=== PATIENT | male | born 1970 | race Caucasian/White ===

== ENCOUNTER 2021-09-09 20:17 | Inpatient (IN) | payer OTHER ==
[~2021-09-09] VITALS: Ht 177.8 cm; Wt 125.2 kg
[2021-09-09 20:24] VITALS: BP 132/63
[2021-09-09 22:33] LABS: ABSOLUTE NEUTROPHILS 4.8 thou/uL (1.4-8.2); BASOPHILS 0.2 % (0.0-2.0); HEMOGLOBIN 11.9 gm/dL (14.0-18.0); LYMPHOCYTES 19.5 % (24.0-44.0); MCH 30.8 pg (26.0-34.0); MCV 90.8 fL (80.0-100.0); MONOCYTES 7.5 % (1.0-8.0); PLATELET COUNT 140 thou/uL (150-400); POLYS 72.8 % (36.0-66.0); RBC 3.85 mil/uL (4.50-6.00); RDW 13.3 % (10.5-14.5); WBC 6.6 thou/uL (4.0-11.0)
[2021-09-09 22:40] LABS: CALCIUM 7.8 mg/dL (8.5-10.1); POTASSIUM 4.6 mmol/L (3.5-5.1)
[2021-09-09 22:51] LABS: TOTAL BILIRUBIN 0.3 mg/dL (0.2-1.0); TOTAL PROTEIN 6.2 g/dL (6.4-8.2)
[2021-09-09 23:36] LABS: URINE BILIRUBIN NEGATIVE (Negative); URINE BLOOD TRACE (Negative); URINE CLARITY CLEAR; URINE COLOR YELLOW; URINE GLUCOSE-RANDOM* NEGATIVE (Negative); URINE KETONES NEGATIVE (Negative); URINE LEUKOCYTES-REFLEX NEGATIVE (Negative); URINE NITRITE-REFLEX NEGATIVE (Negative); URINE PROTEIN (DIPSTICK) NEGATIVE (Negative); URINE UROBILINOGEN 0.2 E.U./dl (0.2-1.0)
[2021-09-09] MEDS ORDERED: NOVOLOG FL100 UNIT/M SUBQ (23:38)
[2021-09-09] MEDS ORDERED: ATORVASTATIN CA10 MG PO (23:39)
[2021-09-09] MEDS ORDERED: CITALOPRAM HBR40 MG PO (23:39)
[2021-09-09] MEDS ORDERED: CLOZAPINE25 MG PO (23:40)
[2021-09-09] MEDS ORDERED: LAMOTRIGINE300 MG PO (23:40)
[2021-09-09] MEDS ORDERED: METFORMIN HCL1000 MG PO (23:41)
[2021-09-09] MEDS ORDERED: PINDOLOL5 MG PER TUBE (23:41)
[2021-09-09] MEDS ORDERED: LISINOPRIL10 MG PO (23:41)
[2021-09-09] MEDS ORDERED: ZIPRASIDONE HCL60 MG PO (23:42)
[2021-09-09] MEDS ORDERED: VASCEPA1 GM PO (23:44)
[2021-09-09] MEDS ORDERED: TRESIBA FL200 UNIT/1 SUBQ (23:44)
[2021-09-10 00:11] VITALS: BP 105/60
[2021-09-10 00:44] VITALS: BP 119/74
--- NOTE | 2021-09-10 02:05 | NUR ---
ADMIT FROM ED. PT LIVES AT HOME WITH HIS SISTER. PT REPORTED FEELING UNWELL FOR 2 WEEKS, SOA, WEAKNESS, COUGH, FEVER, SORE THROAT. PT REPORTED TO ED NOT FEELING WELL FOR 4 DAYS. MED HX ASTHMA, SOA, HTN, DM, SCHIZOPHRENIA, DEPRESSION, ANXIETY. PT ABLE TO CONFIRM HOME MEDS FROM ED LIST, BUT NOT DOSES. PTS SISTER DID COME TO ED WITH PT AND TESTED NEGATIVE. PT HAD J&J VACCINE LAST YEAR. PT HAD FLU VACCINE. PT SLOW TO RESPOND VERBALLY, DEVELOPMENTAL DELAY. LUNGS DIMINISHED, PRN 02 NC FOR LABORED RR. RESPIRATORY PROVIED TREATMENT AND PLACED ON CPAP. ABD DISTENDED, BS DECREASED. PALE DIAPHORETIC, PRN PROVIED FOR ELEVATED TEMP. BED ALARM ON. PT EDUCATED TO CALL FOR ASSIST. IVF INTACT.
[2021-09-10 04:28] LABS: CHOLESTEROL 74 mg/dL (<200); HDL CHOLESTEROL 22 mg/dL (>40); LDL CHOLESTEROL 13 mg/dL (<100); TC:HDL 3.4 Ratio (Not establshd); TRIGLYCERIDE 197 mg/dL (<150); VLDL 39 mg/dL (<40)
[2021-09-10 05:05] LABS: SERUM ASSESSMENT Clear
[2021-09-10 05:27] VITALS: BP 135/87
[2021-09-10 08:05] VITALS: BP 114/73
[2021-09-10] MEDS ORDERED: TRESIBA FL200 UNIT/1 SUBQ (12:59)
[2021-09-10 16:54] VITALS: BP 117/81
--- NOTE | 2021-09-10 19:19 | NUR ---
PATIENT IS ALERT AND ORIENTED X4. HE IS DELAYED IN RESPONDING TO THIS CREDIT DIRECTOR DUE TO CHRONIC ILLINESSES. PATIENT IN ON 2L OF OXYGEN VIA NASAL CANULA AT THIS TIME. PATIENT IS MED- [employer] TELE AND HAS BEEN RUNNING SINUS RHYTHM THIS SHIFT. PATIENT HAD A LARGE BM THIS SHIFT. PATIENT USES THE TOILET AND URINAL FOR TOILETING. PATIENTS MOST RECENT BM WAS 09/10/21. PATIENTS IV CAME OUT OF HIS RIGHT HAND. IV SITE WAS CHANGED TO RIGHT FOREARM IV IS PATENT AND SECURED WITH TRANSPARENT DRESSING AND KERLIX. PATIENT CURRENTLY HAS HIS REMDESIVIR AND NORMAL SALINE RUNNING. PATIENT IS ON ENHANCED PRECAUTIONS. HE WILL CONTINUE TO BE MONITORED.
[2021-09-10 21:35] VITALS: BP 126/75
[2021-09-11 03:06] LABS: GLYCOHEMOGLOBIN (HGB A1C) 11.7 % (4.8-5.6)
--- NOTE | 2021-09-11 03:59 | NUR ---
continues on 2 liters n/c. denies pain. resting quietly. calls for assist out of bed to bsc. only needs minimal assist. no d/c concerns voiced.
[2021-09-11 05:21] VITALS: BP 120/71
[2021-09-11 05:36] LABS: ABSOLUTE NEUTROPHILS 6.8 thou/uL (1.4-8.2); BASOPHILS 0.2 % (0.0-2.0); HEMATOCRIT 35.9 % (42.0-52.0); HEMOGLOBIN 12.2 gm/dL (14.0-18.0); LYMPHOCYTES 8.4 % (24.0-44.0); MCH 31.3 pg (26.0-34.0); MCHC 33.9 g/dL (28.0-37.0); MCV 92.5 fL (80.0-100.0); MONOCYTES 6.7 % (1.0-8.0); PLATELET COUNT 171 thou/uL (150-400); POLYS 84.7 % (36.0-66.0); RBC 3.88 mil/uL (4.50-6.00); RDW 13.5 % (10.5-14.5)
[2021-09-11 06:02] LABS: ALBUMIN 2.9 g/dL (3.4-5.0); ANION GAP 14 mmol/L (7-16); BUN 36 mg/dL (7-18); CALCIUM 7.9 mg/dL (8.5-10.1); CHLORIDE 104 mmol/L (98-107); CO2 22 mmol/L (21-32); CREATININE 1.6 mg/dL (0.7-1.3); DIRECT BILIRUBIN < 0.1 mg/dL (<0.1-0.2); GLUCOSE 286 mg/dL (74-106); PHOSPHORUS 3.8 mg/dL (2.6-4.7); POTASSIUM 4.4 mmol/L (3.5-5.1); SGOT 38 U/L (15-37); SGPT 55 U/L (16-63); SODIUM 140 mmol/L (136-145); TOTAL BILIRUBIN 0.3 mg/dL (0.2-1.0); TOTAL PROTEIN 6.5 g/dL (6.4-8.2)
[2021-09-11 06:07] LABS: PROTIME 10.9 Seconds (10.5-12.1)
[2021-09-11 08:02] VITALS: BP 119/75
[2021-09-11 15:51] VITALS: BP 137/94
[2021-09-11 18:53] VITALS: BP 124/75
[2021-09-12 04:32] LABS: ABSOLUTE NEUTROPHILS 4.9 thou/uL (1.4-8.2); BASOPHILS 0.1 % (0.0-2.0); HEMATOCRIT 33.1 % (42.0-52.0); HEMOGLOBIN 11.3 gm/dL (14.0-18.0); LYMPHOCYTES 9.8 % (24.0-44.0); MCH 31.3 pg (26.0-34.0); MCHC 34.2 g/dL (28.0-37.0); MCV 91.6 fL (80.0-100.0); MONOCYTES 6.6 % (1.0-8.0); PLATELET COUNT 187 thou/uL (150-400); POLYS 83.5 % (36.0-66.0); RBC 3.62 mil/uL (4.50-6.00); RDW 13.5 % (10.5-14.5); WBC 5.9 thou/uL (4.0-11.0)
[2021-09-12 04:56] LABS: ALBUMIN 2.6 g/dL (3.4-5.0); ANION GAP 11 mmol/L (7-16); BUN 33 mg/dL (7-18); CALCIUM 7.9 mg/dL (8.5-10.1); CHLORIDE 104 mmol/L (98-107); CO2 25 mmol/L (21-32); CREATININE 1.3 mg/dL (0.7-1.3); DIRECT BILIRUBIN < 0.1 mg/dL (<0.1-0.2); GLUCOSE 221 mg/dL (74-106); PHOSPHORUS 2.8 mg/dL (2.5-4.9); POTASSIUM 4.5 mmol/L (3.5-5.1); SGOT 27 U/L (15-37); SGPT 43 U/L (30-65); SODIUM 140 mmol/L (136-145); TOTAL BILIRUBIN 0.1 mg/dL (0.2-1.0); TOTAL PROTEIN 5.9 g/dL (6.4-8.2)
--- NOTE | 2021-09-12 06:43 | NUR ---
Pt. stated he slept well during the night. CPAP on all night with 3L bleed in then this am he requested to be just on 3L/NC around 0635. No respiratory distress. Cont. on enhanced precaution , afebrile. He requested for his psych meds last night. [employer] notified and meds ordered. Unable to give HS dose of clozapine pending authorization per pharmacist. Meds will be given today and pt. informed.
[2021-09-12 07:25] LABS: HIV ANTIBODY Non Reactive (Non Reactive)
[2021-09-12 07:48] VITALS: BP 145/80
[2021-09-12 15:50] VITALS: BP 139/87
--- NOTE | 2021-09-12 18:36 | NUR ---
PATIENT HAS BEEN ON AND OFF BIPAP ALL DAY. HE IS VOIDING IN HIS URINAL. TALKED TO SISTER TODAY. PATIENT IS RESTING IN BED WITH CALL LAI IN REACH.
[2021-09-12 20:20] VITALS: BP 147/93
[2021-09-13 03:38] VITALS: BP 134/79
--- NOTE | 2021-09-13 04:59 | NUR ---
PROGRESS PT A/O X4. VSS, AFEBRILE. LUNGS CLEAR AND DIMINISHED. O2 AT 3 LITERS AND CPAP AT HS WITH 3 LITERS O2. PT DENIES PAIN. UP AD RAJINDER IN ROOM ACCUCHECKS AND SSI CONTINUE. TELEMETRY INTACT READING SR. PT HAS A FREQUENT DRY COUGH BUT NOT BRINGING UP ANY SPUTUM. VOIDING QS CONTINUE POC.
[2021-09-13 06:31] LABS: HEMOGLOBIN 11.6 gm/dL (14.0-18.0); MCH 30.3 pg (26.0-34.0); MCV 91.8 fL (80.0-100.0); PLATELET COUNT 221 thou/uL (150-400); RBC 3.81 mil/uL (4.50-6.00); RDW 13.6 % (10.5-14.5); WBC 6.2 thou/uL (4.0-11.0)
[2021-09-13 06:50] LABS: ALBUMIN 2.7 g/dL (3.4-5.0); ANION GAP 11 mmol/L (7-16); BUN 33 mg/dL (7-18); CALCIUM 8.2 mg/dL (8.5-10.1); CHLORIDE 105 mmol/L (98-107); CO2 25 mmol/L (21-32); CREATININE 1.3 mg/dL (0.7-1.3); DIRECT BILIRUBIN < 0.1 mg/dL (<0.1-0.2); GLUCOSE 188 mg/dL (74-106); PHOSPHORUS 3.9 mg/dL (2.5-4.9); SGOT 23 U/L (15-37); SGPT 40 U/L (30-65); SODIUM 141 mmol/L (136-145); TOTAL BILIRUBIN 0.3 mg/dL (0.2-1.0)
[2021-09-13 08:42] LABS: ABSOLUTE NEUTROPHILS 5.1 thou/uL (1.4-8.2); METAMYELOCYTES 3 %; MYELOCYTES 2 %
[2021-09-13 08:43] LABS: ANISOCYTOSIS 1+
[2021-09-13 08:54] VITALS: BP 139/83
--- NOTE | 2021-09-13 14:49 | NUR ---
INITIAL ASSESSMENT: Received consult. ROBERT reviewed chart and spoke with nursing and attending physician. Pt was admitted from home due to COVID pneumonia. Pt placed in Enhanced Isolation. Pt had positive COVID test on 09/07. Pt has received the Darron and Darron COVID vaccination. Pt with hx VIBHA/asthma. Pt is afebrile and on 3L of O2. Pt is on IV meds and Remdesivir. Discharge home is anticipated in 1-2 days. ROBERT spoke with pt via phone. Introduced role of SW. Pt is alert/orientated. Pt reports he lives at home with his sister. Prior to admission, pt was independent with ADLs. No use of DME or home O2. No hx of HH services or post-acute placement. Pt's PCP is Dr. Samuel Colindres. ROBERT discussed possible need for home O2. Pt is aware and agreeable with home O2 referral SW provided DME options. No preference voiced. ROBERT confirmed pt's home address and phone number. ROBERT faxed home O2 referral to [facility] for review. Notified [facility] liaison. Will need rest/exercise oximetry ordered prior to discharge to determine home O2 needs. Plan is for pt to discharge home when medically stable. ROBERT is following to assist as needed with discharge planning.
[2021-09-13 16:08] VITALS: BP 130/83
--- NOTE | 2021-09-13 17:49 | NUR ---
174: DISCUSSED BG/INSULIN WITH DR. AMADOR. NOTIFIED HIM PTS BG 83, PT HAS EATEN APPROXIMATELY 70% OF DINNER; RN HESITANT TO ADMINISTER FULL 40U HUMALOG DOSE. OKAY TO ADMINISTER 20U WITH DINNER AND RESUME PREVIOUS DOSING ORDERS.
--- NOTE | 2021-09-13 19:50 | NUR ---
PT PROGRESSING ON PLAN OF CARE WITH IMPROVEMENT IN RESPIRATORY SYMPTOMS; WEANING O2 TOLERATED, ENCOURAGING PT TO AMBULATE AND SIT UP IN CHAIR TOLERATED, CONTINUES ON STEROIDS AND LASIX IV.
[2021-09-13 20:00] VITALS: BP 158/93
--- NOTE | 2021-09-14 03:10 | NUR ---
PROGRESS PT A/O X4. UP AD RAJINDER. VSS, LUNGS CLEAR BUT DIMINISHED ON 3 LITERS O2 VIA NC AND CPAP WITH 3 LITERS AT HS. ACCUCHECKS AND SSI CONTINUE. IV ANTIBIOTICS CONTINUE ORDERED. PT DENIES PAIN. CONTINUE POC.
[2021-09-14 04:52] LABS: ALBUMIN 2.7 g/dL (3.4-5.0); ANION GAP 13 mmol/L (7-16); BUN 33 mg/dL (7-18); CALCIUM 8.5 mg/dL (8.5-10.1); CHLORIDE 103 mmol/L (98-107); CO2 25 mmol/L (21-32); CREATININE 1.3 mg/dL (0.7-1.3); DIRECT BILIRUBIN < 0.1 mg/dL (<0.1-0.2); GLUCOSE 84 mg/dL (74-106); PHOSPHORUS 4.6 mg/dL (2.5-4.9); POTASSIUM 3.5 mmol/L (3.5-5.1); SGOT 63 U/L (15-37); SGPT 66 U/L (30-65); SODIUM 141 mmol/L (136-145); TOTAL BILIRUBIN 0.3 mg/dL (0.2-1.0); TOTAL PROTEIN 5.9 g/dL (6.4-8.2)
[2021-09-14 05:09] LABS: HEMATOCRIT 34.7 % (42.0-52.0); HEMOGLOBIN 11.8 gm/dL (14.0-18.0); MCH 31.2 pg (26.0-34.0); MCV 91.7 fL (80.0-100.0); PLATELET COUNT 248 thou/uL (150-400); RBC 3.79 mil/uL (4.50-6.00); RDW 13.6 % (10.5-14.5); WBC 7.2 thou/uL (4.0-11.0)
[2021-09-14 05:48] VITALS: BP 144/93
[2021-09-14 07:03] VITALS: BP 136/88
[2021-09-14 08:23] LABS: ABSOLUTE NEUTROPHILS 5.2 thou/uL (1.4-8.2); ATYPICAL LYMPHS 4 %; MYELOCYTES 2 %
[2021-09-14 08:26] LABS: ANISOCYTOSIS SLIGHT
--- NOTE | 2021-09-14 15:51 | NUR ---
ROBERT reviewed chart and spoke with nursing and attending physician. Pt remains in Enhanced Isolation due to COVID. Pt is afebrile and on 3L of O2. Pt is on IV meds and Remdesivir. Possible discharge home in 1-2 days. Pt will need a rest/exercise oximetry prior to discharge to determine home O2 needs. [facility] is able to provide home O2 if needed. ROBERT updated [facility] liaison. ROBERT is following to assist as needed with discharge planning.
[2021-09-14 15:55] VITALS: BP 141/87
--- NOTE | 2021-09-14 18:08 | NUR ---
PT ALERT AND ORIENTED TIMES FOUR. VSS. ROOM AIR. PT DENEIS PAIN/SOA. PT UP SITING IN THE CHAIR FOR MOST OF THE DAY. PT PROGRESSING TOWRADS POC GOALS, POSSIBLE PLANS TO DISCHARGE HOME TOMORROW.
[2021-09-14 19:07] VITALS: BP 138/86
[2021-09-15 02:50] VITALS: BP 157/99
--- NOTE | 2021-09-15 03:25 | NUR ---
PROGRESS PT A/O X4. LUNGS CLEAR BUT DIMINISHED. IV ANTIBIOTICS COMPLETED. VSS ON ROOM AIR PLAN TO DC HOME TOMORROW AFTER OXIMETRY TEST.
[2021-09-15 07:47] VITALS: BP 143/90
[2021-09-15 07:48] LABS: HEMATOCRIT 37.4 % (42.0-52.0); HEMOGLOBIN 12.8 gm/dL (14.0-18.0); MCH 31.2 pg (26.0-34.0); MCHC 34.1 g/dL (28.0-37.0); MCV 91.5 fL (80.0-100.0); PLATELET COUNT 290 thou/uL (150-400); RBC 4.09 mil/uL (4.50-6.00); RDW 13.7 % (10.5-14.5); WBC 7.8 thou/uL (4.0-11.0)
[2021-09-15 08:02] LABS: ALBUMIN 2.8 g/dL (3.4-5.0); CALCIUM 8.8 mg/dL (8.5-10.1); CREATININE 1.3 mg/dL (0.7-1.3); DIRECT BILIRUBIN 0.1 mg/dL (<0.1-0.2); PHOSPHORUS 4.8 mg/dL (2.5-4.9); POTASSIUM 3.5 mmol/L (3.5-5.1); TOTAL BILIRUBIN 0.4 mg/dL (0.2-1.0); TOTAL PROTEIN 6.1 g/dL (6.4-8.2)
[2021-09-15 11:46] VITALS: BP 143/90
[2021-09-15] MEDS ORDERED: PREDNISONE 10 M10 MG PO (14:00)
[2021-09-15 14:09] LABS: ABSOLUTE NEUTROPHILS 5.3 thou/uL (1.4-8.2); METAMYELOCYTES 1 %; MYELOCYTES 6 %
[2021-09-15 14:16] VITALS: BP 143/90
--- NOTE | 2021-09-15 14:28 | NUR ---
DISCHARGE NOTE: SW reviewed chart and spoke with nursing and attending physician. Pt remains in Enhanced Isolation due to COVID. Pt is afebrile and is medically stable to discharge home today. Rest/exercise oximetry completed. Pt does not need home O2. SW spoke with pt via phone to provide update and discuss discharge plan. Pt is aware and in agreement with discharge. Pt denies having any discharge needs. Pt's family to provide transportation home. No additional SW needs identified at this time, but is available to assist should needs arise.
--- NOTE | 2021-09-15 14:34 | NUR ---
DISCHARGE NOTE: GIVEN DISCHARGE INFORMATION AND SIGNED VERBAL CONSENT. SCRIPTS GIVEN TO PREFERRED PHARMACY. GAVE INFORMATION ABOUT NEW MEDICATIONS AND SPOKE ABOUT UPCOMING APPOINTMENTS. DC IV AND TELE. ALL BELONGINGS WITH PT. WAITING FOR RIDE HOME. WILL CONTINUE TO MONITOR.
[2021-09-16 09:32] LABS: T-SPOT.TB Negative
== END 2021-09-15 15:15 | disposition home or self-care (01) | DRG 177 ==
LOC: ER 20:17 → 3W 23:30 → EROBS 23:30 → 3W 09-10 00:11
PROVIDERS: Nurse Practitioner Family; Physician Assistant; Specialist; ADMIT Hospitalist; ATTEND Hospitalist
PROC: 5A09357 Assistance with Respiratory Ventilation, Less than 24 Consecutive Hours, Continuous Positive Airway Pressure (ICD-10-PCS; principal; 2021-09-10)
PROC: XW033E5 Introduction of Remdesivir Anti-infective into Peripheral Vein, Percutaneous Approach, New Technology Group 5 (ICD-10-PCS; principal; 2021-09-10)
PROC: 5A09357 Assistance with Respiratory Ventilation, Less than 24 Consecutive Hours, Continuous Positive Airway Pressure (ICD-10-PCS; 2021-09-11)
PROC: 5A09357 Assistance with Respiratory Ventilation, Less than 24 Consecutive Hours, Continuous Positive Airway Pressure (ICD-10-PCS; 2021-09-12)
PROC: 5A09357 Assistance with Respiratory Ventilation, Less than 24 Consecutive Hours, Continuous Positive Airway Pressure (ICD-10-PCS; 2021-09-13)
PROC: 5A09357 Assistance with Respiratory Ventilation, Less than 24 Consecutive Hours, Continuous Positive Airway Pressure (ICD-10-PCS; 2021-09-14)
DX: U07.1 COVID-19 (principal); J12.82 Pneumonia due to coronavirus disease 2019; J96.21 Acute and chronic respiratory failure with hypoxia; N17.9 Acute kidney failure, unspecified; E87.1 Hypo-osmolality and hyponatremia; Z68.41 Body mass index [BMI] 40.0-44.9, adult; J45.909 Unspecified asthma, uncomplicated; G47.33 Obstructive sleep apnea (adult) (pediatric); E66.01 Morbid (severe) obesity due to excess calories; F32.9 Major depressive disorder, single episode, unspecified; E11.9 Type 2 diabetes mellitus without complications; D69.6 Thrombocytopenia, unspecified; F20.9 Schizophrenia, unspecified; F41.9 Anxiety disorder, unspecified; Z82.49 Family history of ischemic heart disease and other diseases of the circulatory system; Z83.3 Family history of diabetes mellitus; Z80.0 Family history of malignant neoplasm of digestive organs; Z79.899 Other long term (current) drug therapy
CPT/HCPCS: 10879

== ENCOUNTER → 2021-11-10 | Outpatient (CLI) | payer OTHER ==
[~2021-11-10] MED LIST: ATORVASTATIN CA10 MG PO; CITALOPRAM HBR40 MG PO; CLOZAPINE25 MG PO; LAMOTRIGINE300 MG PO; LISINOPRIL10 MG PO; METFORMIN HCL1000 MG PO; NOVOLOG FL100 UNIT/M SUBQ; PINDOLOL5 MG PER TUBE; PREDNISONE 10 M10 MG PO; TRESIBA FL200 UNIT/1 SUBQ; VASCEPA1 GM PO; ZIPRASIDONE HCL60 MG PO
== END ==
LOC: RAD 14:15
PROVIDERS: ATTEND Internal Medicine
DX: J84.9 Interstitial pulmonary disease, unspecified (principal)